=== PATIENT | male | born 1950 | race African-American/Black ===

== ENCOUNTER → 2016-08-13 | Outpatient (CLI) | payer OTHER ==
[~2016-08-13] MED LIST: ASPIRIN PO; CARDURA PO; CRESTOR PO; IBUPROFEN PO; LOPRESSOR PO; PROTONIX PO
--- NOTE | ~2016-08-13 | ST ---
Unit #: [id number] #: [id number] Patient: CORBIN CASTELLON JR [id number] [facility]. [address] [address] [id number] O MR#: [id number] NAME: CORBIN CASTELLON JR : 1950 SEX: M STUDY DATE/TIME: 08/13/2016 UNIT: CEKG ROOM: STUDY DESCRIPTION: Attending Physician: Jeff Herrera M.D. Referring Physician: Jeff Herrera M.D. Primary Care Physician: Christ Grijalva M.D. CARDIOLOGY REPORT EXAM Regular treadmill stress test. FINDINGS Resting heart rate is 59. Resting blood pressure is 129/79 mmHg. Baseline EKG shows normal sinus rhythm. No significant ST-T wave changes. PROCEDURE Patient was made to exercise on a standard [place] protocol. Total exercise time is 6 minutes, completing stage II of a standard [place] protocol. No complaints of chest pain, neck pain, arm pain, or jaw pain. Patient complained of shortness of breath. Maximal heart rate obtained is 141 which is 92% of maximal predicted heart rate. Maximal blood pressure obtained is 140/80 mmHg. Patient had 0.[address]-T wave changes noted. Occasional single multifocal premature ventricular complexes noted. No sustained arrhythmias seen. CONCLUSION 1. Poor exercise tolerance. 2. There is no clinical, hemodynamic, or EKG evidence of ischemia at [id number] workload [92% of maximal predicted heart rate, 7 METs]. 3. Normal blood pressure response. 4. Patient had occasional single PVCs noted at peak exercise. 5. Normal regular treadmill stress test with poor baseline exercise tolerance and occasional single premature ventricular complexes noted at peak exercise. Dictated by... Samantha Mitchell TD: 08/13/2016 16:35 JOB #: [id number] Unit #: [id number] #: [id number] Patient: CORBIN CASTELLON JR CARDIOLOGY REPORT Page 1 of 1 X Ruth Rivera MD <ELECTRONICALLY SIGNED> 10/18/16 [id number] CARDIOLOGY REPORT
== END | disposition home or self-care (01) ==
LOC: CEKG 07:35
DX: R07.9 Chest pain, unspecified (principal); E78.5 Hyperlipidemia, unspecified; I10 Essential (primary) hypertension
CPT/HCPCS: 93017